=== PATIENT | female | born 1975 | race Two or more races ===

== ENCOUNTER 2019-08-12 17:33 | Emergency (ER) | payer OTHER ==
[~2019-08-12] VITALS: Ht 160 cm; Wt 49.9 kg
[2019-08-12 17:43] VITALS: BP 130/100
--- NOTE | 2019-08-12 17:43 | NUR ---
ED Nurse Note: Pateint FREDERICK HAYES from home for OD. Per EMS, pt OD on pain meds, Nqarcan 2mg given relief captain. Pt has history of cancer. Pt is in hospice. Unk code status. AAOx4, verbally responsive. On 2L nc, tolerating well. Pt placed on hall monitor.
--- NOTE | 2019-08-12 17:56 | Emergency Room Report ---
History of Present Illness General Chief Complaint: Overdose Source: Patient, EMS Present Illness HPI Patient is a 44-year-old female brought in by EMS after possible overdose on pain medications. Patient had been given 2 mg of IV Narcan prior to her arrival with improvement in mental status. Prior history of cancer and patient had been chronically ill. Currently in hospice. CODE STATUS is unknown per EMS. Allergies: Coded Allergies: No Known Allergies (Unverified , 08/12/19) COVID-19 Screening Contact w/high risk pt: No Recent Travel to affected area: No Experienced COVID-19 symptoms?: No COVID-19 Testing performed STAVE GRADER: No Patient History Reviewed Nursing Documentation: PMH: Agreed; PSxH: Agreed Nursing Documentation-PMH Hx Cancer: Yes Review of Systems All Other Systems: negative except mentioned in HPI Physical Exam Vital Signs Date Time Temp Pulse Resp B/P (MAP) Pulse Ox O2 Delivery O2 Flow Rate FiO2 08/12/19 17:35 97.9 100 18 130/100 (110) 96 Room Air Sp02 EP Interpretation: reviewed, normal General Appearance: alert, GCS 15, cachetic, Chronically Ill Head: atraumatic ENT: normal ENT inspection, hearing grossly normal, normal voice Neck: normal inspection, full range of motion, supple, no bony tend Respiratory: normal inspection, lungs clear, normal breath sounds, no respiratory distress, no retraction, no wheezing Cardiovascular #1: no edema, tachycardia Gastrointestinal: normal inspection, normal bowel sounds, non tender, soft, no guarding, no hernia Genitourinary: no CVA tenderness Musculoskeletal: normal inspection, back normal, normal range of motion Neurologic: alert, motor strength/tone normal, music minister III-XII nml as tested, oriented x3, responsive, speech normal, normal inspection Psychiatric: normal inspection, judgement/insight normal, mood/affect normal Skin: other Medical Decision Making Diagnostic Impression: Primary Impression: Drug overdose Additional Impressions: Cancer Leukopenia ER Course Patient presented for altered mental status and drug overdose. Differential diagnosis include was not limited to medication withdrawal, overdose among others. Because of complexity of patient's case laboratory tests studies were ordered.Patient had prior history of reported cancer. Was noted to be markedly cachectic. Initial heart rate was noted to be greater than 150.Patient laboratory testing was notable for significant neutropenia. Patient had recent history of chemotherapy. Patient is still undergoing treatment . Patient's doctor is Dr. Khan. Patient's CODE STATUS was discussed and patient was noted to have prior history of hospice. After discussion with patient and family patient will be discharged home with current status. They were advised of patient's prognosis and possibility of and they indicate understanding continue to wish to be sent back to home. Labs Test 08/12/19 18:41 White Blood Count 0.7 K/UL (4.8-10.8) Red Blood Count 3.93 M/UL (4.20-5.40) Hemoglobin 11.4 G/DL (12.0-16.0) Hematocrit 35.5 % (37.0-47.0) Mean Corpuscular Volume 90 FL (80-99) Mean Corpuscular Hemoglobin 29.0 PG (27.0-31.0) Mean Corpuscular Hemoglobin Concent 32.2 G/DL (32.0-36.0) Red Cell Distribution Width 12.4 % (11.6-14.8) Platelet Count 167 K/UL (150-450) Mean Platelet Volume 11.0 FL (6.5-10.1) Neutrophils (%) (Auto) % (45.0-75.0) Lymphocytes (%) (Auto) % (20.0-45.0) Monocytes (%) (Auto) % (1.0-10.0) Eosinophils (%) (Auto) % (0.0-3.0) Basophils (%) (Auto) % (0.0-2.0) Differential Total Cells Counted 100 Neutrophils % (Manual) 67 % (45-75) Lymphocytes % (Manual) 29 % (20-45) Monocytes % (Manual) 4 % (1-10) Eosinophils % (Manual) 0 % (0-3) Basophils % (Manual) 0 % (0-2) Band Neutrophils 0 % (0-8) Platelet Estimate Adequate Platelet Morphology Normal Red Blood Cell Morphology Normal Sodium Level 131 MMOL/L (136-145) Potassium Level 2.8 MMOL/L (3.5-5.1) Chloride Level 95 MMOL/L (98-107) Carbon Dioxide Level 20 MMOL/L (21-32) Anion Gap 16 mmol/L (5-15) Blood Urea Nitrogen 45 mg/dL (7-18) Creatinine 1.8 MG/DL (0.55-1.30) Estimat Glomerular Filtration Rate 30.3 mL/min (>60) Glucose Level 100 MG/DL (74-106) Calcium Level 6.6 MG/DL (8.5-10.1) Total Bilirubin 0.6 MG/DL (0.2-1.0) Aspartate Amino Transf (AST/SGOT) 60 U/L (15-37) Alanine Aminotransferase (ALT/SGPT) 29 U/L (12-78) Alkaline Phosphatase 87 U/L (46-116) Troponin I 0.000 ng/mL (0.000-0.056) Total Protein 5.6 G/DL (6.4-8.2) Albumin 2.0 G/DL (3.4-5.0) Globulin 3.6 g/dL Albumin/Globulin Ratio 0.6 (1.0-2.7) Thyroid Stimulating Hormone (TSH) 3.883 uiU/mL (0.358-3.740) Last Vital Signs Date Time Temp Pulse Resp B/P (MAP) Pulse Ox O2 Delivery O2 Flow Rate FiO2 08/12/19 17:35 97.9 100 18 130/100 (110) 96 Room Air Status: unchanged Disposition: HOME, SELF-CARE Condition: Serious Scripts Cephalexin* (KEFLEX*) 500 Mg Capsule 500 MG ORAL EVERY 6 HOURS, #28 CAP Prov: Obey Arellano MD 08/12/19 Obey Arellano MD Aug 12, 2019 17:56
--- NOTE | 2019-08-12 18:20 | NUR ---
ED Nurse Note: IV line established. Blood specimen collected and sent to lab.
--- NOTE | 2019-08-12 18:57 | NUR ---
ED Nurse Note: Pt BP 57/33, ERMD aware.
[2019-08-12 19:09] VITALS: BP 97/49
--- NOTE | 2019-08-12 19:16 | NUR ---
ED Nurse Note: Pt resting in bed. BP low, ERMD notified. Awaiting further orders.
--- NOTE | 2019-08-12 19:16 | NUR ---
HAND-OFF: Report given to Una MARQUEZ.
[2019-08-12 19:22] LABS: ANION GAP 16 mmol/L (5-15); BLOOD UREA NITROGEN 45 mg/dL (7-18); CALCIUM 6.6 MG/DL (8.5-10.1); CARBON DIOXIDE 20 MMOL/L (21-32); CHLORIDE 95 MMOL/L (98-107); CREATININE 1.8 MG/DL (0.55-1.30); POTASSIUM 2.8 MMOL/L (3.5-5.1); SODIUM 131 MMOL/L (136-145)
[2019-08-12 19:25] LABS: HEMATOCRIT 35.5 % (37.0-47.0); HEMOGLOBIN 11.4 G/DL (12.0-16.0); MEAN CORPUSCULAR VOLUME 90 FL (80-99); PLATELET COUNT 167 K/UL (150-450); RED BLOOD COUNT 3.93 M/UL (4.20-5.40); RED CELL DISTRIBUTION WIDTH 12.4 % (11.6-14.8)
[2019-08-12 19:27] LABS: WHITE BLOOD COUNT 0.7 K/UL (4.8-10.8)
[2019-08-12 19:35] LABS: ALANINE AMINOTRANSFERASE 29 U/L (12-78); ALBUMIN/GLOBULIN RATIO 0.6 (1.0-2.7); ALKALINE PHOSPHATASE 87 U/L (46-116); ASPARTATE AMINO TRANSFERASE 60 U/L (15-37); BILIRUBIN,TOTAL 0.6 MG/DL (0.2-1.0)
--- NOTE | 2019-08-12 19:45 | NUR ---
ED Nurse Note: All medications administered, pt tolerated well no ss of distress noted. will continue to monitor
--- NOTE | 2019-08-12 20:00 | NUR ---
ED Nurse Note: All medications administered, pt tolerated well. Will continue to monitor.
[2019-08-12] MEDS ORDERED: Piperacillin/Tazobactam 3.375 GM in NS 110 ML IVPB ONE (20:30)
--- NOTE | 2019-08-12 20:30 | NUR ---
ED Nurse Note: all medications administered, pt tolerated well no ss of distress noted.
--- NOTE | 2019-08-12 21:00 | NUR ---
ED Nurse Note: Pt family spoke with ERMD. ERMD notified family of pt status. Pt family insisted on pt being discharged home despite pt condition. ERMD notified family of risks.
[2019-08-12] MEDS ORDERED: CEPHALEXIN500 MG ORAL (21:18)
[2019-08-12 21:30] VITALS: BP 65/31
[2019-08-12 22:25] VITALS: BP 61/32
--- NOTE | 2019-08-12 22:25 | NUR ---
ER DISCHARGE NOTE: Patient is cleared to be discharged home with family per ERMD for end of life care, pt is aox1, 96% on room air. pt family was given dc and prescription instructions, pt family was able to verbalize understanding, pt id band and iv site removed without complications. pt left ED via wheelchair. pt took all belongings.
[2019-08-12 22:32] VITALS: BP 61/32
== END 2019-08-12 22:25 | disposition home or self-care (01) ==
LOC: EDBD 17:33 → EMR 17:45
DX: T50.904A Poisoning by unspecified drugs, medicaments and biological substances, undetermined, initial encounter (principal); Y92.9 Unspecified place or not applicable; D70.9 Neutropenia, unspecified; Z85.9 Personal history of malignant neoplasm, unspecified; R00.0 Tachycardia, unspecified
CPT/HCPCS: 36415; 80053; 84443; 84484; 85007; 85025; 96361; 96365; 96367; J2543; P9047; Z7502; 99284; J8499